=== PATIENT | female | born 2000 | race Two or more races ===

== ENCOUNTER 2022-03-07 23:18 | Observation (INO) | payer MEDICAID ==
[~2022-03-07] VITALS: Ht 154.9 cm; Wt 86.6 kg
[2022-03-08] MEDS ORDERED: PREN-96 PO (00:37)
== END 2022-03-08 03:02 | disposition home or self-care (01) ==
LOC: LDRP 23:18
PROVIDERS: ADMIT Obstetrics & Gynecology; ATTEND Obstetrics & Gynecology
DX: O62.9 Abnormality of forces of labor, unspecified (principal); O30.003 Twin pregnancy, unspecified number of placenta and unspecified number of amniotic sacs, third trimester; Z3A.30 30 weeks gestation of pregnancy; Z87.891 Personal history of nicotine dependence
CPT/HCPCS: 59025; 76815; 81002; 94760; G0378